=== PATIENT | female | born 1980 | race Hispanic/Latino ===

== ENCOUNTER 2017-09-17 07:58 | Day surgery (SDC) | payer BC ==
--- NOTE | 2017-09-17 08:20 | C.PDOC ---
History Of Present Illness Patient presents to ED for vaginal bleeding, currently approx 8 wks , . She denies current pelvic pain, chest pain, SOB, fever, dysuria, vomiting/diarrhea. Set Making Machine Operator is Dr. Fabian. PMhx of hypothyroidism. Time Seen by Provider: 09/17/17 08:01 Chief Complaint (Nursing): Female Genitourinary History Per: Patient History/Exam Limitations: no limitations Current Symptoms Are (Timing): Still Present Severity: Mild Abnormal Vaginal Bleeding: Yes Past Medical History Reviewed: Historical Data, Nursing Documentation, Vital Signs Vital Signs: Last Vital Signs Temp 97.6 F 09/17/17 13:55 Pulse 67 09/17/17 13:55 Resp 16 09/17/17 13:55 BP 97/67 L 09/17/17 13:55 Pulse Ox 97 09/17/17 13:55 - Medical History PMH: Hypothyroidism Family History: States: No Known Family Hx - Social History Hx Alcohol Use: No Hx Substance Use: No - Immunization History Hx Tetanus Toxoid Vaccination: Yes Hx Influenza Vaccination: Yes Hx Pneumococcal Vaccination: No Review Of Systems Constitutional: Negative for: Fever, Chills Cardiovascular: Negative for: Chest Pain, Palpitations Respiratory: Negative for: Cough, Shortness of Breath Gastrointestinal: Negative for: Nausea, Vomiting, Abdominal Pain, Diarrhea Genitourinary: Positive for: Vaginal Bleeding. Negative for: Dysuria, Hematuria , Vaginal Discharge Physical Exam - Physical Exam Appears: Well, Non-toxic, No Acute Distress Skin: Normal Color, Warm, Dry Eye(s): bilateral: Normal Inspection Oral Mucosa: Moist Cardiovascular: Rhythm Regular Respiratory: Normal Breath Sounds, No Rales, No Rhonchi, No Wheezing Gastrointestinal/Abdominal: Normal Exam, Bowel Sounds, Soft, No Tenderness Neurological/Psych: Oriented x3 ED Course And Treatment - Laboratory Results Result Diagrams: 09/17/17 08:31 09/17/17 08:31 ECG: Interpreted By Me, Viewed By Me (NSR 66bpm, normal axis, no acute ST/T wave changes ) ECG Interpretation: No Acute Changes O2 Sat by Pulse Oximetry: 100 (RA) Pulse Ox Interpretation: Normal - CT Scan/US transvaginal US Other Rad Studies (CT/US): Read By Radiologist, Radiology Report Reviewed CT/US Interpretation: Accession No. : [id number]. Patient Name / ID : NAKIA JORDAN / [id number]. Exam Date : 09/17/2017 08:44:11 ( Approved ). Study Comment : Sex / Age : F / 37Y. Creator : Steve Park MD. Dictator : Steve Park MD. Machine Operator Packaging : Laboratory Specialist : Steve Park MD. Approver2 : Report Date : 09/17/2017 10:55:22. My Comment : . Date of service: 09/17/2017. PROCEDURE: OB Pelvic Ultrasound. HISTORY: , bleeding, for OR. LMP: 07/24/2017. COMPARISON: None available. FINDINGS: UTERUS: Gestational sac: Single intrauterine gestation. Measures 2.6 cm compatible with estimated gestational 7 weeks, 2 days. Yolk sac: Measures 0.2 cm. pole: [place]-rump length measures 0.6 cm compatible with estimated gestational age 6 weeks, 3 days. Heart rate: Not yet identified. age (Ultrasound estimated): 6 weeks, 6 days. [place]onica- gestational hemorrhage: None. Date of delivery (Ultrasound estimated) : 2018. Uterus measures 8.4 x 4.6 x 7.2 cm. Normal in size and appearance. CERVIX: Measures 4.5 cm. Long and closed. No cervical abnormality seen. RIGHT OVARY: Measures 2.9 x 1.6 x 2.2 cm. No mass lesion. Normal flow. LEFT OVARY: Measures 3.1 x 1.9 x 2.2 cm. Corpus luteum measuring 2.1 x 2.0 x 1.5 cm. Normal flow. FREE FLUID: None. OTHER FINDINGS: None. IMPRESSION: Single live intrauterine gestation with average ultrasound age of 6 weeks, 6 days. Cardiac motion is seen on real-time imaging ; however, heart rate unable to be documented. Close clinical follow-up with serial pelvic sonography and serum beta HCG levels is recommended. Progress Note: Blood work, UA, EKG, CXR and transvaginal US ordered (as requested by mill tender warm up). Patient to be admitted to [facility] under Dr. Fabian's service. Disposition - Disposition Disposition: HOSPITALIZED Disposition Time: 08:20 Condition: STABLE - Clinical Impression Clinical Impression: Vaginal bleeding, Incomplete Decision To Admit - Pt Status Changed To: Hospital Disposition Of: [facility]- Endo,OR,Cath,IR - . Bed Request Type: Same Day Surgery Admitting Physician: Jhon Fabian Patient Diagnosis: Vaginal bleeding, Incomplete
[2017-09-17 08:36] VITALS: BMI 22.4
[2017-09-17 08:39] LABS: BASO # 0.1 K/uL (0.0-0.2); BASO % 1.2 % (0.0-2.0); EOS # 0.1 K/uL (0.0-0.7); HEMOGLOBIN 12.6 g/dL (11.0-16.0); LYMPH # 2.1 K/uL (1.0-4.3); LYMPH % 35.1 % (20.0-40.0); MEAN CELL VOLUME 93.6 fL (81.0-99.0); MEAN CORPUSCULAR HEMOGLOBIN 32.7 pg (27.0-31.0); MEAN CORPUSCULAR HGB CONC 34.9 g/dL (33.0-37.0); MEAN PLATELET VOLUME 8.7 fL (7.2-11.7); MONO # 0.6 K/uL (0.0-0.8); MONO % 10.1 % (0.0-10.0); NEUT # 3.1 K/uL (1.8-7.0); NEUT % 52.6 % (50.0-75.0); RBC 3.86 Mil/uL (3.80-5.20); WHITE BLOOD COUNT 5.9 K/uL (4.8-10.8)
[2017-09-17 08:48] LABS: INR 1.1; PROTHROMBIN TIME 11.6 SECONDS (9.7-12.2)
[2017-09-17 08:55] LABS: ALB/GLOB RATIO 1.6 (1.0-2.1); ALBUMIN 4.4 g/dL (3.5-5.0); ALT/SGPT 20 U/L (9-52); AST/SGOT 26 U/L (14-36); BLOOD UREA NITROGEN 9 mg/dL (7-17); CALCIUM 9.4 mg/dl (8.6-10.4); GFR AFRICAN-AMERICAN > 60; GFR NON-AFRICAN AMERICAN > 60
[2017-09-17 09:10] LABS: SQUAMOUS EPITHIAL 3 /hpf (0-5); URINE BILIRUBIN NEGATIVE (NEGATIVE); URINE BLOOD 1+ (NEGATIVE); URINE CLARITY Clear (Clear); URINE COLOR Yellow (YELLOW); URINE GLUCOSE (UA) NORMAL (Normal); URINE LEUKOCYTE ESTERASE NEG Leu/uL (Negative); URINE PROTEIN NEGATIVE (NEGATIVE); URINE UROBILINOGEN NORMAL mg/dL (0.2-1.0)
[2017-09-17] MEDS ORDERED: ceFAZolin IV 1 gm in Dextrose 0 GM/0 ML BAG IVPB ONE (10:28)
[2017-09-17] MEDS ORDERED: cefOXitin IV 1 gm in Dextrose 0 GM/0 ML BAG IVPB ONE (10:28)
[2017-09-17] MEDS ORDERED: Midazolam 2 MG/2 ML VIAL ONE (10:35)
[2017-09-17] MEDS ORDERED: Propofol 10 mg/ml Inj (20 ML) ONE (10:35)
[2017-09-17] MEDS ORDERED: ceFAZolin IV 1 gm in Dextrose 1 GM/50 ML BAG IVPB ONE (10:48)
--- NOTE | 2017-09-17 10:57 | US ---
Date of service: 09/17/2017 PROCEDURE: OB Pelvic Ultrasound HISTORY: , bleeding, for OR LMP: 07/24/2017 COMPARISON: None available. FINDINGS: UTERUS: Gestational sac: Single intrauterine gestation. Measures 2.6 cm compatible with estimated gestational 7 weeks, 2 days. Yolk sac: Measures 0.2 cm. pole: [place]-rump length measures 0.6 cm compatible with estimated gestational age 6 weeks, 3 days. Heart rate: Not yet identified. age (Ultrasound estimated): 6 weeks, 6 days Veronica-gestational hemorrhage: None. Date of delivery (Ultrasound estimated) : 05/07/2018 Uterus measures 8.4 x 4.6 x 7.2 cm. Normal in size and appearance. CERVIX: Measures 4.5 cm. Long and closed. No cervical abnormality seen. RIGHT OVARY: Measures 2.9 x 1.6 x 2.2 cm. No mass lesion. Normal flow. LEFT OVARY: Measures 3.1 x 1.9 x 2.2 cm. Corpus luteum measuring 2.1 x 2.0 x 1.5 cm. Normal flow. FREE FLUID: None. OTHER FINDINGS: None. IMPRESSION: Single live intrauterine gestation with average ultrasound age of 6 weeks, 6 days. Cardiac motion is seen on real-time imaging ; however, heart rate unable to be documented. Close clinical follow-up with serial pelvic sonography and serum beta HCG levels is recommended.
--- NOTE | 2017-09-17 11:02 | RAD ---
Date of service: 09/17/2017 PROCEDURE: CHEST RADIOGRAPH, 1 VIEW HISTORY: preop, for D C COMPARISON: None available. FINDINGS: LUNGS: Clear. PLEURA: No pneumothorax or pleural fluid seen. CARDIOVASCULAR: Normal. OSSEOUS STRUCTURES: No significant abnormalities. VISUALIZED UPPER ABDOMEN: Normal. OTHER FINDINGS: None. IMPRESSION: No active disease.
[2017-09-17] MEDS ORDERED: HYDROmorphone 0.5 mg/0.5 ml ISec IVP PRN (11:27)
[2017-09-17] MEDS ORDERED: Oxycodone/Acetaminophen 5/325 mg Tab PO PRN (13:07)
[2017-09-17 14:13] VITALS: RESP 16; TEMP 97.6
[2017-09-17 14:19] VITALS: BP 97/67; PULSE 67
--- NOTE | 2017-09-18 12:18 | CARD ---
APPROVED REPORT Date of service: 09/17/2017 EKG Measurement Heart [id number] <Conclusion> Normal sinus rhythm Low voltage QRS Borderline ECG
[2017-09-21 11:44] VITALS: O2SAT 100
--- NOTE | 2017-09-23 06:59 | OP ---
Copied To: Jhon Fabian MD Attending MD: Jhon Fabian MD PROCEDURE DATE: 09/17/2017 SURGEON: Jhon Fabian MD ANESTHESIA: LMA. COMPLICATIONS: None. ESTIMATED BLOOD LOSS: Minimal. PREOPERATIVE DIAGNOSES: Incomplete and acute vaginal bleeding. POSTOPERATIVE DIAGNOSES: Incomplete and acute vaginal bleeding. PROCEDURE PERFORMED: Emergency suction dilation and curettage. DESCRIPTION OF PROCEDURE: After adequate anesthesia was obtained, the patient was placed in dorsal lithotomy position. She was prepped and draped and the surgeon was gowned and gloved. A speculum was placed in the vagina. The anterior lip of the cervix was grasped. The cervix was already dilated with bleeding coming out. The 8[place] curved cannula was inserted in the uterine cavity and the content of the cavity was emptied. There was no necessity for sharp curetting. The contents of the products of conception was sent to Pathology for both standard pathology and genetics. At this point, it was checked for hemostasis and was excellent. The uterus was gently massaged and the tenaculum was were removed. The patient was woken up and taken to Recovery in excellent condition. Jhon Fabian MD MTDD
== END 2017-09-17 14:04 | disposition home or self-care (01) ==
LOC: C.ER 07:58 → C.SDS 08:45
PROVIDERS: ATTEND Obstetrics & Gynecology Reproductive Endocrinology
DX: O03.4 Incomplete spontaneous abortion without complication (principal)
CPT/HCPCS: 59812; 71045; 76805; 76817; 80053; 81001; 84443; 84702; 85025; 85610; 85730; 86850; 86900; 88233; 88262; 88305; 93005; 99285; J0690; J1885; J2250; J2405; J2704; J3010